=== PATIENT | male | born 1965 | race Two or more races ===

== ENCOUNTER 2018-06-18 09:56 | Emergency (ER) | payer BC, OTHER ==
[2018-06-18 10:15] VITALS: BMI 32.8
[2018-06-18 11:14] LABS: EOS % 5.6 % (0-4.5); HEMATOCRIT 37.3 % (35.4-49); HEMOGLOBIN 13.2 GM/dL (11.7-16.9); LYMPH % 29.8 % (8-40); MCH 30.8 pg (25.7-33.7); MCHC 35.3 g/dl (32.0-35.9); MEAN CELL VOLUME 87.4 fl (80-96); MEAN PLT VOLUME 8.8 fl (7.5-11.1); MONO % 11.4 % (3.8-10.2); NEUT % 52.2 % (42.8-82.8); PLATELET COUNT 144 K/MM3 (134-434); RBC 4.27 M/mm3 (4.00-5.60); RDW 13.6 % (11.9-15.9); WHITE BLOOD COUNT 4.8 K/mm3 (4.0-10.0)
[2018-06-18 11:48] LABS: ALBUMIN 3.4 g/dl (3.4-5.0); ALK PHOS 80 U/L (45-117); ANION GAP 5 MMOL/L (8-16); BILIRUBIN,TOTAL 0.2 mg/dL (0.2-1); BLOOD UREA NITROGEN 16 mg/dL (7-18); CALCIUM 8.5 mg/dL (8.5-10.1); CHLORIDE 109 mmol/L (98-107); CO2 26 mmol/L (21-32); CREATININE 0.4 mg/dL (0.55-1.3); GLUCOSE,RANDOM 81 mg/dL (74-106); SGOT/AST 23 U/L (15-37); SGPT/ALT 48 U/L (13-61); SODIUM 140 mmol/L (136-145)
--- NOTE | 2018-06-18 11:51 | PDOC ---
History of Present Illness - General Chief Complaint: Headache Stated Complaint: HEADACHE Time Seen by Provider: 06/18/18 11:32 - History of Present Illness Initial Comments: The pt is a 52M w/ a history of HTN and achalasia who presents for evaluation of 1 week of VO. He describes a gradual onset b/l VO that started as L occipital and slowly progressed to global, constant, throbbing VO that is worse with light and sound. It has been associated with mild blurry vision, L tinnitus , and sensation of trouble with balance. Endorses NBNB emesis x2. Of note, the patient has had BUE weakness for the last 8 months after falling at work. Denies fevers/chills, LOC, chest pain, trouble breathing, diarrhea, abdominal pain Has tried excedrin with little relief Denies hx of migraines or frequent HAs 06/18/18 11:46 Past History - Past Medical History Allergies/Adverse Reactions: Allergies Allergy/AdvReac Type Severity Reaction Status Date / Time ibuprofen [From Motrin] Allergy Verified 06/18/18 10:11 Home Medications: Ambulatory Orders Lisinopril 5 mg PO DAILY 06/18/18 Anemia: No Asthma: No Cancer: No Cardiac Disorders: No CVA: No COPD: No CHF: No Dementia: No Diabetes: No GI Disorders: No Disorders: No HTN: Yes (no meds) Hypercholesterolemia: Yes Liver Disease: No Seizures: No Thyroid Disease: No - Surgical History Abdominal Surgery: Yes ("SOME KIND OF INTESTINAL SX") Appendectomy: Yes Cardiac Surgery: No Cholecystectomy: No Lung Surgery: No Neurologic Surgery: No Orthopedic Surgery: Yes (R. Rotator Cuff) - Immunization History Immunization Up to Date: No - Suicide/Smoking/Psychosocial Hx Smoking Status: No Smoking History: Never smoked Have you smoked in the past 12 months: No Number of Cigarettes Smoked Daily: 0 If you are a former smoker, when did you quit?: 15 years ago Hx Alcohol Use: No Drug/Substance Use Hx: No Substance Use Type: None Hx Substance Use Treatment: No Review of Systems - Review of Systems Able to Perform ROS?: Yes Comments:: GENERAL/CONSTITUTIONAL: No fever or chills. No weakness HEAD, EYES, EARS, NOSE AND THROAT: No change in vision. No sore throat CARDIOVASCULAR: No chest pain or shortness of breath RESPIRATORY: Denies cough, hemoptysis GASTROINTESTINAL: No nausea, vomiting, diarrhea or constipation GENITOURINARY: No dysuria, frequency, or change in urination SKIN: No rash NEUROLOGIC: No headache, vertigo, loss of consciousness, or change in strength/ sensation ENDOCRINE: No increased thirst. No abnormal weight change HEMATOLOGIC/LYMPHATIC: No anemia, easy bleeding, or history of blood clots ALLERGIC/IMMUNOLOGIC: No hives or skin allergy Is the patient limited Mauritian proficient: No *Physical Exam - Vital Signs Last Vital Signs Temp Pulse Resp BP Pulse Ox 98.1 F 96 H 18 137/95 99 06/18/18 10:12 06/18/18 10:12 06/18/18 10:12 06/18/18 10:12 06/18/18 10:12 - Physical Exam Comments: GENERAL: Awake, alert, and oriented to person/place/time, in no acute distress HEAD: No signs of trauma, normocephalic, atraumatic EYES: PERRLA, EOMI, sclera anicteric, conjunctiva clear ENT: Hearing grossly normal, nares patent, oropharynx clear without exudates. Moist mucosa LUNGS: No distress, speaks full sentences, clear to auscultation bilaterally HEART: Regular rate and rhythm, normal S1 and S2, no murmurs appreciated, peripheral pulses normal and equal bilaterally ABDOMEN: Soft, nontender, normoactive bowel sounds. No guarding, no rebound EXTREMITIES: Normal inspection, Normal range of motion, no edema. No clubbing or cyanosis NEUROLOGICAL: Normal speech, normal gait, no focal sensorimotor deficits SKIN: Warm, Dry Moderate Sedation - Procedure Monitoring Vital Signs: Procedure Monitoring Vital Signs Temperature 98.1 F 06/18/18 10:12 Pulse Rate 96 H 06/18/18 10:12 Respiratory Rate 18 06/18/18 10:12 Blood Pressure 137/95 06/18/18 10:12 O2 Sat by Pulse Oximetry (%) 99 06/18/18 10:12 ED Treatment Course - LABORATORY CBC & Chemistry Diagram: 06/18/18 11:00 06/18/18 11:00 - ADDITIONAL ORDERS Additional order review: 06/18/18 11:00 RBC 4.27 MCV 87.4 MCHC 35.3 RDW 13.6 MPV 8.8 D Neutrophils % 52.2 Lymphocytes % 29.8 Monocytes % 11.4 H Eosinophils % 5.6 H Basophils % 1.0 - RADIOLOGY Radiology Studies Ordered: Category Date Time Status HEAD CT WITHOUT CONTRAST [CT] Stat CT Scan 06/18/18 11:46 Ordered Medical Decision Making - Medical Decision Making Lytes wnl No leukocytosis No anemia No JUAN Patient no longer wishes to wait for evaluation by Neurology. Patient is ambulating in ED, A&O x4. *DC/Admit/Observation/Transfer Diagnosis at time of Disposition: Headache Qualifiers: Headache type: unspecified Headache chronicity pattern: unspecified pattern Intractability: not intractable Qualified Code(s): R51 - Headache - Discharge Dispostion Disposition: AGAINST MEDICAL ADVICE Condition at time of disposition: Improved Decision to Admit order: No - Referrals Referrals: Leonid Arriola MD [Primary Care Provider] - Boris Amador DO [Staff Physician] - - Patient Instructions Printed Discharge Instructions: DI for Headache Additional Instructions: You were seen in the Emergency Department today for evaluation of headache with ear ringing. Review the handout provided at discharge. Follow up with the Neurology follow up given. Return to the Emergency Department if you develop fevers/chills, vision changes, worsening balance, chest pain, trouble breathing , weakness/strength/sensation changes, worsening symptoms, or any new/ concerning symptoms. - Post Discharge Activity Forms/Work/School Notes: Back to Work
[2018-06-18] MEDS ORDERED: ACETAMINOPHEN 1000 MG/100 ML VIAL (NON FORMULARY) IVPB ONE (12:51)
[2018-06-18] MEDS ORDERED: ACETAMINOPHEN INJECTION 100 ML IVPB ONE (12:52)
[2018-06-18] MEDS ORDERED: MECLIZINE HCL 25 MG TABLET (FP) PO ONE (13:24)
[2018-06-18] MEDS ORDERED: MECLIZINE HCL 25 MG TABLET (FP) ONE (13:28)
--- NOTE | 2018-06-18 14:03 | PDOC ---
Attending Attestation - Resident Resident Name: Peyman Tanner - ED Attending Attestation I have performed the following: I have examined & evaluated the patient, The case was reviewed & discussed with the resident, I agree w/resident's findings & plan, Exceptions are as noted - HPI HPI: 06/18/18 14:04 52 M with h/o vertigo, achalasia, HTN, presenting to ED with headache x 1 week with L ear ringing. Pt states that the ringing and headache started at the same time. Pt reports that he also has dizziness that feels like his vertigo. Pt denies F/C. Denies any unilateral weakness/numbness. Denies neck pain. Denies thunderclap. Denies worst headache of life. - Physicial Exam PE: 06/18/18 14:10 "GENERAL: Awake, alert, and fully oriented, in no acute distress. HEAD: No signs of trauma EYES: PERRLA, EOMI, sclera anicteric, conjunctiva clear ENT: Auricles normal inspection, hearing grossly normal, nares patent, oropharynx clear without exudates. Moist mucosa NECK: Nontender, no stepoffs, Normal ROM, supple, no lymphadenopathy, JVD, or masses LUNGS: Breath sounds equal, clear to auscultation bilaterally. No wheezes, and no crackles HEART: Regular rate and rhythm, normal S1 and S2, no murmurs, rubs or gallops ABDOMEN: Soft, nontender, normoactive bowel sounds. No guarding, no rebound. No masses EXTREMITIES: Normal range of motion, no edema. No clubbing or cyanosis. No cords, erythema, or tenderness NEUROLOGICAL: Cranial nerves II through XII intact. 5/5 strength and sensation in all extremities, Normal speech, normal gait, normal cerebellar function SKIN: Warm, Dry, normal turgor, no rashes or lesions noted. - Medical Decision Making 06/18/18 14:10 52 M with headache and dizziness. Pt with tinnitus as well, suggesting vestibular neuritis vs other inner ear process. Pt with no focal neuro deficits to suggest CVA. - Labs - CT head - Tylenol, reglan, meclizine - Neuro consult 06/18/18 16:[address] head negative Still awaiting neuro eval Pt at this time states he feels slightly better, but still mildly symptomatic when he walks. Pt does not wish to await neuro eval, as he is tired of waiting in ER. The patient is clinically sober, free from distracting injury, appears to have intact insight and judgment and reason and in my opinion has the capacity to make decisions. The patient presented with headache and dizziness. I have explained that I am concerned that this may represent stroke; they have verbalized an understanding of my concerns. I have told the patient that while their labs and CT were normal, they could still have a stroke. I have discussed the need for neuro consultation and possible admission to the hospital to get more information about potential causes of the patients dizziness. I have told the patient that if they leave, they could get much worse, could become critically ill, and could possibly become disabled or . The patient is not willing to await neuro evaluation. He is unwilling to stay overnight for monitoring. He is refusing any further care and is leaving against medical advice. I am unable to convince the patient to stay, I have asked them to return as soon as possible to complete their evaluation. I have answered all their questions.
[2018-06-18 15:19] VITALS: BP 110/66; PULSE 100; TEMP 98.5
== END 2018-06-18 17:18 | disposition left against medical advice (07) ==
LOC: JER 09:56
PROC: 3E033NZ Introduction of Analgesics, Hypnotics, Sedatives into Peripheral Vein, Percutaneous Approach (ICD-10-PCS; principal; 2018-06-18)
DX: R51 Headache (principal); I10 Essential (primary) hypertension; K22.0 Achalasia of cardia; E78.00 Pure hypercholesterolemia, unspecified
CPT/HCPCS: 36415; 70450-TC; 80053; 85025; 99282-25; J0131

== ENCOUNTER 2018-08-18 09:37 | Emergency (ER) | payer BC ==
[2018-08-18 09:47] VITALS: BP 151/102; PULSE 97; TEMP 97.6; BMI 37.5
[2018-08-18] MEDS ORDERED: IBUPROFEN 400 MG TABLET (FP) PO ONE ×2 (10:22→10:24)
--- NOTE | 2018-08-18 11:41 | PDOC ---
History of Present Illness - General Chief Complaint: Pain, Acute Stated Complaint: RT KNEE PAIN Time Seen by Provider: 08/18/18 09:59 History Source: Patient Exam Limitations: No Limitations Past History - Past Medical History Allergies/Adverse Reactions: Allergies Allergy/AdvReac Type Severity Reaction Status Date / Time No Known Allergies Allergy Verified 08/18/18 10:26 Home Medications: Ambulatory Orders Lisinopril 5 mg PO DAILY 06/18/18 Anemia: No Asthma: No Cancer: No Cardiac Disorders: No CVA: No COPD: No CHF: No Dementia: No Diabetes: No GI Disorders: No Disorders: No HTN: Yes (no meds) Hypercholesterolemia: Yes Liver Disease: No Seizures: No Thyroid Disease: No - Surgical History Abdominal Surgery: Yes ("SOME KIND OF INTESTINAL SX") Appendectomy: Yes Cardiac Surgery: No Cholecystectomy: No Lung Surgery: No Neurologic Surgery: No Orthopedic Surgery: Yes (R. Rotator Cuff) - Immunization History Immunization Up to Date: No - Suicide/Smoking/Psychosocial Hx Smoking Status: No Smoking History: Never smoked Have you smoked in the past 12 months: No Number of Cigarettes Smoked Daily: 0 If you are a former smoker, when did you quit?: 15 years ago Information on smoking cessation initiated: No Hx Alcohol Use: No Drug/Substance Use Hx: No Substance Use Type: None Hx Substance Use Treatment: No *Physical Exam - Vital Signs Last Vital Signs Temp Pulse Resp BP Pulse Ox 97.6 F 97 H 17 151/102 H 97 08/18/18 09:43 08/18/18 09:43 08/18/18 09:43 08/18/18 09:43 08/18/18 09:43 - Physical Exam General Appearance: No: Apparent Distress Extremity: positive: Other (+mild TTP along R 1st MTP joint, no deformity of toe , able to flex and extend toe, no other joint tenderness along foot noted, FROM of R ankle, no swelling noted; +mild swelling of R knee with TTP along lateral aspect of knee, having difficulty extending R knee, no deformity of joint noted ; RLE neurovascularly intact) Integumentary: positive: Normal Color. negative: Ecchymosis Neurologic: positive: Alert, Normal Mood/Affect ED Treatment Course - RADIOLOGY Radiology Studies Ordered: Category Date Time Status ANKLE & FOOT-RIGHT* [RAD] Stat Radiology 08/18/18 10:22 Taken KNEE 4 POS-RIGHT [RAD] Stat Radiology 08/18/18 10:22 Taken - Medications Given in the ED: ED Medications Discontinued Medications Generic Name Dose Route Start Last Admin Trade Name Fran PRN Reason Stop Dose Admin Ibuprofen 800 mg 08/18/18 10:22 08/18/18 10:26 Motrin - PO 08/18/18 10:23 800 mg ONCE ONE Administration Medical Decision Making - Medical Decision Making 52 y/o M with hx of R knee lateral meniscus tear 2016 (not surgically repaired) presents with R foot and R knee pain after tripping and falling on sidewalk 6 days ago. States initially only his foot was hurting, but yesterday, his right knee also started to hurt and swell. Patient has been using cane and using Motrin for pain. Denies head/neck trauma, other injuries. Xrays negative for fracture Given Motrin Concern for possible meniscus tear (or worsening of tear) Given knee immbolizer, crutches Will refer to ortho 08/18/18 11:41 *DC/Admit/Observation/Transfer Diagnosis at time of Disposition: Right knee injury Qualifiers: Encounter type: initial encounter Qualified Code(s): S89.91XA - Unspecified injury of right lower leg, initial encounter - Discharge Dispostion Disposition: HOME Condition at time of disposition: Stable Decision to Admit order: No - Referrals Referrals: Ayaan Garcia MD [Staff Physician] - 2 Days - Patient Instructions Printed Discharge Instructions: DI for Meniscal Tear, How to Use Crutches Additional Instructions: Thank you for choosing [facility]. It was a pleasure taking care of you. You may take Motrin 600 mg every 6 hours by mouth as needed for mild to moderate pain. Take Motrin with food. You may have meniscus tear of right knee (or worsening of tear) Follow-up with orthopedics in 2 days Return to the Emergency Department if your symptoms worsen or persist or have other concerning symptoms. - Post Discharge Activity
== END 2018-08-18 11:49 | disposition home or self-care (01) ==
LOC: JERFT 09:37
PROC: 2W3CX1Z Immobilization of Right Lower Arm using Splint (ICD-10-PCS; principal; 2018-08-18)
DX: S89.91XA Unspecified injury of right lower leg, initial encounter (principal); W18.09XA Striking against other object with subsequent fall, initial encounter; Y93.89 Activity, other specified; Y92.89 Other specified places as the place of occurrence of the external cause; Z87.891 Personal history of nicotine dependence; I10 Essential (primary) hypertension; E78.00 Pure hypercholesterolemia, unspecified
CPT/HCPCS: 73564-TC-RT-FY; 73610-TC-RT-FY; 73630-TC-RT-FY; 99282-25

== ENCOUNTER 2019-03-24 18:22 | Emergency (ER) | payer OTHER ==
[2019-03-24 18:26] VITALS: BP 142/93; PULSE 97; TEMP 98; BMI 33.2
--- NOTE | 2019-03-24 18:26 | PDOC ---
Rapid Medical Evaluation Chief Complaint: Back Pain Time Seen by Provider: 03/24/19 18:24 Medical Evaluation: Allergies Allergy/AdvReac Type Severity Reaction Status Date / Time No Known Allergies Allergy Verified 08/18/18 10:26 03/24/19 18:24 I have performed a brief in-person evaluation of this patient. The patient presents with a chief complaint of:twisted left ankle and fell, incurred low back after/ because of fall Pertinent physical exam findings: walks with limp I have ordered the following: Left Ankle Xray The patient will proceed to the ED for further evaluation. Discharge Disposition - Diagnosis Ankle pain, left Qualifiers: Chronicity: acute Qualified Code(s): M25.572 - Pain in left ankle and joints of left foot - Discharge Dispostion Condition at time of disposition: Stable - Referrals - Patient Instructions - Post Discharge Activity
--- NOTE | 2019-03-24 19:40 | PDOC ---
History of Present Illness - General Chief Complaint: Injury Stated Complaint: INJURY Time Seen by Provider: 03/24/19 18:24 History Source: Patient - History of Present Illness Initial Comments: 03/24/19 19:55 Chief complaint: Fall Patient is a healthy 53-year-old male who states that he stepped on duct tape, slipped, twisted his left ankle and fell on his back. He feels a noise in his back. Patient did not hit his head, no LOC, is ambulatory. This happened earlier today. Patient has not taken any pain medicine. GENERAL/CONSTITUTIONAL: No fever, weakness. dizziness HEAD, EYES, EARS, NOSE AND THROAT: No change in vision. No ear pain or discharge. No sore throat. CARDIOVASCULAR: No chest pain RESPIRATORY: No shortness of breath or cough GASTROINTESTINAL: No pain, nausea, vomiting, diarrhea or constipation GENITOURINARY: No dysuria MUSCULOSKELETAL: No neck or back pain SKIN: No rash NEUROLOGIC: No headache, vertigo, loss of consciousness, or loss of sensation. GENERAL: The patient is awake, alert, and fully oriented, in no acute distress. HEAD: Normal with no signs of trauma. EYES: Pupils equal, round and reactive to light, sclera anicteric, conjunctiva clear. ENT: pharynx: no erythema, no exudate, uvula midline NECK: supple CHEST: clear, nontender, rr ABD: soft, nontender BACK: Mild sacral tenderness no other signs of injury EXTREMITIES: Left ankle and foot with mild tenderness, no deformity, no gross swelling, neurovascular intact. Rest of extremities, normal range of motion, no edema. NEUROLOGICAL: Normal speech, normal gait. SKIN: Warm, Dry Past History - Past Medical History Allergies/Adverse Reactions: Allergies Allergy/AdvReac Type Severity Reaction Status Date / Time No Known Allergies Allergy Verified 03/24/19 18:26 Home Medications: Ambulatory Orders Lisinopril 5 mg PO DAILY 06/18/18 Anemia: No Asthma: No Cancer: No Cardiac Disorders: No CVA: No COPD: No CHF: No Dementia: No Diabetes: No GI Disorders: No Disorders: No HTN: Yes (no meds) Hypercholesterolemia: Yes Liver Disease: No Seizures: No Thyroid Disease: No - Surgical History Abdominal Surgery: Yes ("SOME KIND OF INTESTINAL SX") Appendectomy: Yes Cardiac Surgery: No Cholecystectomy: No Lung Surgery: No Neurologic Surgery: No Orthopedic Surgery: Yes (R. Rotator Cuff) - Immunization History Immunization Up to Date: No - Psycho Social/Smoking Cessation Hx Smoking Status: No Smoking History: Never smoked Have you smoked in the past 12 months: No Number of Cigarettes Smoked Daily: 0 If you are a former smoker, when did you quit?: 15 years ago Hx Alcohol Use: No Drug/Substance Use Hx: No Substance Use Type: None Hx Substance Use Treatment: No *Physical Exam - Vital Signs Last Vital Signs Temp Pulse Resp BP Pulse Ox 98 F 97 H 18 142/93 99 03/24/19 18:23 03/24/19 18:23 03/24/19 18:23 03/24/19 18:23 03/24/19 18:23 Medical Decision Making - Medical Decision Making 03/24/19 19:57 Healthy 53-year-old male who fell, injured ankle, foot, left and lower back. Patient is ambulatory and neurologically intact. Will give Motrin and x-ray areas of concern Preliminary review of x-ray show no fracture Discussed issues, findings, results, applicable medications and treatments and follow-up. All these were understood and all questions were answered 03/24/19 20:32 Discharge - Discharge Information Problems reviewed: Yes Clinical Impression/Diagnosis: Ankle pain, left Qualifiers: Chronicity: acute Qualified Code(s): M25.572 - Pain in left ankle and joints of left foot Back injury Qualifiers: Encounter type: initial encounter Qualified Code(s): S39.92XA - Unspecified injury of lower back, initial encounter Condition: Stable Disposition: HOME - Admission No - Follow up/Referral Referrals: Leonid Arriola MD [Primary Care Provider] - Ayaan Garcia MD [Staff Physician] - - Patient Discharge Instructions Patient Printed Discharge Instructions: DI for Low Back Pain Additional Instructions: No heavy lifting or bending Apply ice to the area 20 minutes every 2 hours for the next 2 days Continue taking Motrin 600 mg every 6 hours for pain. Return to the nearest ER if numbness, weakness, severe pain, problems with urinating or having bowel movements. Call orthopedist today for an appointment for further evaluation - Post Discharge Activity Work/Back to School Note: Back to Work
[2019-03-24] MEDS ORDERED: IBUPROFEN 600 MG TABLET (FP) PO ONE ×2 (19:56→20:10)
== END 2019-03-24 20:51 | disposition home or self-care (01) ==
LOC: JERFT 18:22
CPT/HCPCS: 72100-TC-FY; 73610-TC-LT-FY; 73630-TC-LT; 99281-25

== ENCOUNTER 2023-01-22 06:07 | Emergency (ER) | payer BC, OTHER ==
[2023-01-22 06:15] VITALS: RESP 18; BMI 29.7
[2023-01-22 07:07] LABS: BASO % 0.7 % (0-2.0); EOS % 0.1 % (0-4.5); HEMATOCRIT 41.1 % (35.4-49); HEMOGLOBIN 13.8 GM/dL (11.7-16.9); LYMPH % 19.2 % (8-40); MCH 29.5 pg (25.7-33.7); MCHC 33.6 g/dl (32.0-35.9); MEAN CELL VOLUME 87.9 fl (80-96); MEAN PLT VOLUME 9.7 fl (7.5-11.1); MONO % 16.6 % (3.8-10.2); NEUT % 63.4 % (42.8-82.8); PLATELET COUNT 143 10^3/uL (134-434); RBC 4.67 M/mm3 (4.00-5.60); RDW 13.6 % (11.9-15.9); WHITE BLOOD COUNT 4.4 K/mm3 (4.0-10.0)
[2023-01-22 07:25] LABS: POTASSIUM 3.7 mmol/L (3.5-5.1)
[2023-01-22 07:27] LABS: ALBUMIN 3.2 g/dl (3.4-5.0); CALCIUM 8.1 mg/dL (8.5-10.1)
[2023-01-22 07:28] LABS: BLOOD UREA NITROGEN 20.2 mg/dL (7-18); MAGNESIUM 1.7 mg/dL (1.8-2.4)
[2023-01-22] MEDS ORDERED: ONDANSETRON 4 MG/2 ML VIAL IVPUSH ONE (07:29)
[2023-01-22] MEDS ORDERED: MAG HYDROX/AL HYDROX/SIMETH 30 ML UNIT-DOSE CUP PO ONE (07:29)
[2023-01-22] MEDS ORDERED: FAMOTIDINE 20 MG/50 ML IVPB 20 MG/50 ML MG IVPB ONE (07:29)
[2023-01-22] MEDS ORDERED: ACETAMINOPHEN 1000 MG/100 ML BAG IVPB ONE (07:29)
[2023-01-22] MEDS ORDERED: SODIUM CHLORIDE 0.9% 500 ML INFUS.BAG IV ONE (07:29)
[2023-01-22 07:30] LABS: CREATININE 0.3 mg/dL (0.55-1.3)
[2023-01-22 07:31] LABS: VENOUS BASE EXCESS -0.9 mmol/L (-2-2); VENOUS O2 SATURATION 78.7 % (70-80); VENOUS PCO2 43.4 mmHg (38-52); VENOUS PH 7.371 (7.310-7.410)
[2023-01-22 07:32] LABS: BILIRUBIN,TOTAL 0.4 mg/dL (0.2-1); TOT PROT 7.1 g/dl (6.4-8.2)
[2023-01-22 07:35] LABS: N-TERMINAL BNP 45.1 pg/ml (5-125)
[2023-01-22] MEDS ORDERED: KETOROLAC TROMETHAMINE 15 MG/ML VIAL IVPUSH ONE (08:08)
[2023-01-22] MEDS ORDERED: ACETAMINOPHEN INJECTION 100 ML IVPB ONE (09:35)
[2023-01-22] MEDS ORDERED: ONDANSETRON 4 MG/2 ML VIAL ONE (09:35)
[2023-01-22] MEDS ORDERED: KETOROLAC TROMETHAMINE 15 MG/ML VIAL ONE (09:35)
[2023-01-22 09:51] VITALS: BP 138/81; PULSE 101; TEMP 99.2
== END 2023-01-22 11:29 | disposition home or self-care (01) ==
LOC: JER 06:07
PROC: 3E033NZ Introduction of Analgesics, Hypnotics, Sedatives into Peripheral Vein, Percutaneous Approach (ICD-10-PCS; principal; 2023-01-22)
PROC: 3E033GC Introduction of Other Therapeutic Substance into Peripheral Vein, Percutaneous Approach (ICD-10-PCS; 2023-01-22)
PROC: 3E033GC Introduction of Other Therapeutic Substance into Peripheral Vein, Percutaneous Approach (ICD-10-PCS; 2023-01-22)
DX: R07.89 Other chest pain (principal); R11.0 Nausea; J11.1 Influenza due to unidentified influenza virus with other respiratory manifestations; Z20.822 Contact with and (suspected) exposure to COVID-19
CPT/HCPCS: 0241U-QW; 36415; 71045-TC-FY; 80053; 82553; 82803; 83735; 83880; 84484; 85025; 93005; 93010; 96374; 96375; 99285-25

== ENCOUNTER 2024-09-21 18:42 | Emergency (ER) | payer OTHER ==
[2024-09-21 19:35] VITALS: BMI 25.7
[2024-09-21 19:43] VITALS: TEMP 98.2
[2024-09-21 20:14] LABS: ABSOLUTE IMMATURE GRANULOCYTES 0.04 x10^3/uL (0.0-0.031); BASOPHILS # 0.02 x10^3/uL (0.01-0.08); EOSINOPHIL % 1.1 % (0.8-7.0); EOSINOPHILS # 0.08 x10^3/uL (0.04-0.54); HEMATOCRIT 40.4 % (40.1-51.0); HEMOGLOBIN 13.3 g/dL (13.7-17.5); MCHC 32.9 g/dl (32.3-36.5); MEAN CELL VOLUME 88.8 fl (79.0-92.2); MONOCYTE # 0.88 x10^3/uL (0.30-0.82); MONOCYTE % 11.6 % (5.3-12.2); PLATELET COUNT 214 x10^3/uL (163-337); RDW 13.2 % (12.2-16.1)
[2024-09-21 20:43] LABS: POTASSIUM 4.1 mmol/L (3.5-5.1)
[2024-09-21 20:45] LABS: CALCIUM 9.2 mg/dL (8.5-10.1)
[2024-09-21 20:46] LABS: ALBUMIN 3.3 g/dl (3.4-5.0); MAGNESIUM 1.9 mg/dL (1.8-2.4)
[2024-09-21 20:49] LABS: CREATININE 0.3 mg/dL (0.55-1.3)
[2024-09-21 20:50] LABS: BILIRUBIN,TOTAL 0.6 mg/dL (0.2-1)
[2024-09-21 20:51] LABS: TOT PROT 7.7 g/dl (6.4-8.2)
[2024-09-21] MEDS: SODIUM CHLORIDE 0.9% 500 ML INFUS.BAG IV ONE (21:02)
[2024-09-21 22:59] LABS: POTASSIUM 3.4 mmol/L (3.5-5.1)
[2024-09-21 23:01] LABS: ALBUMIN 2.9 g/dl (3.4-5.0); BLOOD UREA NITROGEN 24.4 mg/dL (7-18); CALCIUM 8.6 mg/dL (8.5-10.1)
[2024-09-21 23:05] LABS: CREATININE 0.2 mg/dL (0.55-1.3)
[2024-09-21 23:06] LABS: TOT PROT 6.6 g/dl (6.4-8.2)
[2024-09-22 00:05] LABS: BILIRUBIN,TOTAL 0.5 mg/dL (0.2-1)
[2024-09-22] MEDS ORDERED: AMOX TR/POT CLAV 875MG/125MG TABLETS (FP) ONE (00:44)
[2024-09-22] MEDS: AMOX TR/POT CLAV 875MG/125MG TABLETS (FP) PO ONE (00:57)
[2024-09-22 00:59] VITALS: BP 132/91; PULSE 101
[2024-09-22 02:32] VITALS: RESP 20
== END 2024-09-22 02:34 | disposition home or self-care (01) ==
LOC: JER 18:42
DX: J18.9 Pneumonia, unspecified organism (principal); R55 Syncope and collapse; K59.00 Constipation, unspecified; R11.0 Nausea
CPT/HCPCS: 0241U-QW; 36415; 71260-TC; 74177-TC; 80053; 83735; 84484; 85025; 86850; 86900; 86901; 93005; 93010; 93970-TC; 99285-25; Q9967